=== PATIENT | male | born 1995 | race Caucasian/White ===

== ENCOUNTER 2019-04-15 16:01 | Emergency (ER) | payer OTHER ==
[~2019-04-15] VITALS: Ht 170.2 cm; Wt 77.3 kg
[2019-04-15 16:10] VITALS: BP 152/91
[2019-04-15] MEDS ORDERED: ONDANSETRON PF 4 MG/2 ML VIAL. IVP ONE (16:30)
[2019-04-15] MEDS ORDERED: IV NORMAL SALINE 1,000ML 1,000 ML IV ONE (16:30)
[2019-04-15] MEDS ORDERED: FAMOTIDINE 20 MG/2 ML VIAL IVP ONE (16:30)
[2019-04-15 17:06] LABS: BASO # 0.2 x10^3/uL (0.0-0.2); BASO % 1 % (0-3); EOS % 0 % (0-3); HEMATOCRIT 50.2 % (39.0-53.0); LYMPH # 1.2 x10^3/uL (1.0-4.8); LYMPH % 9 % (24-48); MEAN CORPUSCULAR HEMOGLOBIN 32 pg (25-35); MEAN CORPUSCULAR HGB CONC 34 g/dL (31-37); MEAN CORPUSCULAR VOLUME 95 fL (79-100); MONO # 0.7 x10^3/uL (0.0-1.1); MONO % 5 % (0-9); NEUT # 11.5 x10^3uL (1.8-7.7); NEUT % 84 % (31-73); PLATELET COUNT 244 x10^3/uL (140-400); RED CELL DISTRIBUTION WIDTH 13.1 % (11.5-14.5); WHITE BLOOD COUNT 13.7 x10^3/uL (4.0-11.0)
[2019-04-15 17:16] LABS: CALCIUM 9.6 mg/dL (8.5-10.1); GFR 93.4; POTASSIUM 3.9 mmol/L (3.5-5.1)
[2019-04-15 17:27] LABS: ALBUMIN/GLOBULIN RATIO 1.5 (1.0-1.7); MAGNESIUM 2.1 mg/dL (1.8-2.4); TOTAL BILIRUBIN 1.5 mg/dL (0.2-1.0); TOTAL PROTEIN 8.4 g/dL (6.4-8.2)
--- NOTE | 2019-04-15 17:37 | PHYS DOC ---
Past History Past Medical History: Alcoholism Past Surgical History: No Surgical History Smoking: Non-smoker Alcohol Use: Heavy Drug Use: None Social History History of heavy vaping for a few years stopping in 2016 Adult General Chief Complaint Chief Complaint: ABDOMINAL PAIN HPI SHAUN Walsh is a 23-year-old male presenting with abdominal pain. Patient states that around 1400 04/15/2019 he was tying his boot and suddenly felt a pain that is located in the left side of abdomen. Pt states that the pain lasted for 10 minutes then improved which was severe enough to limit his ability to move. Pt describes that the first time he noticed pain was 04/14/2019 while he was running. Pt reports that he has been at baseline as far as alcohol consumption- he on average drinks 7 cans a beer a day. Pt's most recent drink was 04/14/2019 around 1800 (a total of 8 drinks 04/14/2019). Pt states that he had a bowel movement earlier this morning (04/15/2019), denies blood in stool. Pt states that he also has chest discomfort on occasion, he noticed it is worse with breathing deeply. Review of Systems Review of Systems Constitutional: Denies fever or chills Eyes: Denies redness or eye pain HENT: Denies nasal congestion or sore throat Respiratory: Denies cough or shortness of breath Cardiovascular: Endorses chest discomfort with deep breathing GI: Endorses abdominal pain, denies nausea and vomiting. : Denies dysuria or hematuria Musculoskeletal: Denies back pain or joint pain Integument: Denies rash or skin lesions Neurologic: Denies headache, focal weakness or sensory changes Complete systems were reviewed and found to be within normal limits, except as documented in this note. Current Medications Current Medications Current Medications Medications (Trade) Dose Ordered Sig/Chelly Start Time Stop Time Status Last Admin Dose Admin Famotidine (Pepcid Vial) 20 mg 1X ONCE 04/15/19 16:30 04/15/19 16:31 DC Ondansetron HCl (Zofran) 4 mg 1X ONCE 04/15/19 16:30 04/15/19 16:31 DC Sodium Chloride 1,000 ml @ 1,000 mls/hr 1X ONCE 04/15/19 16:30 04/15/19 17:29 04/15/19 16:30 1,000 MLS/HR Allergies Allergies Allergies Coded Allergies Type Severity Reaction Last Updated Verified No Known Drug Allergies 04/15/19 No Physical Exam Physical Exam Constitutional: Well developed, well nourished, no acute distress, non-toxic appearance HENT: Normocephalic, atraumatic, oropharynx moist Eyes: Conjunctiva normal, no discharge Neck: Normal range of motion, no tenderness, supple Cardiovascular: Heart rate normal, regular rhythm Lungs & Thorax: Bilateral breath sounds clear to auscultation, no wheezing Abdomen: Soft, no tenderness, no distention/rebound tenderness/guarding Skin: Warm, dry, no erythema, no rash Back: No tenderness, no CVA tenderness Extremities: No tenderness, ROM intact, no edema Neurologic: Alert and oriented X 3, no focal deficits noted Psychologic: Affect normal, judgment normal Current Patient Data Vital Signs Vital Signs Date Time Temp Pulse Resp B/P (MAP) Pulse Ox O2 Delivery O2 Flow Rate FiO2 04/15/19 16:10 101 20 152/91 (111) 97 Lab Results Laboratory Tests Test 04/15/19 16:47 White Blood Count 13.7 x10^3/uL (4.0-11.0) H Red Blood Count 5.30 x10^6/uL (4.30-5.70) Hemoglobin 17.0 g/dL (13.0-17.5) Hematocrit 50.2 % (39.0-53.0) Mean Corpuscular Volume 95 fL (79-100) Mean Corpuscular Hemoglobin 32 pg (25-35) Mean Corpuscular Hemoglobin Concent 34 g/dL (31-37) Red Cell Distribution Width 13.1 % (11.5-14.5) Platelet Count 244 x10^3/uL (140-400) Neutrophils (%) (Auto) 84 % (31-73) H Lymphocytes (%) (Auto) 9 % (24-48) L Monocytes (%) (Auto) 5 % (0-9) Eosinophils (%) (Auto) 0 % (0-3) Basophils (%) (Auto) 1 % (0-3) Neutrophils # (Auto) 11.5 x10^3uL (1.8-7.7) H Lymphocytes # (Auto) 1.2 x10^3/uL (1.0-4.8) Monocytes # (Auto) 0.7 x10^3/uL (0.0-1.1) Eosinophils # (Auto) 0.0 x10^3/uL (0.0-0.7) Basophils # (Auto) 0.2 x10^3/uL (0.0-0.2) Ethyl Alcohol Level < 10 mg/dL (0-10) EKG EKG [] Radiology/Procedures Radiology/Procedures [] Course & Med Decision Making Course & Med Decision Making Pertinent Lab studies reviewed. (See chart for details) Patient with past medical history of chronic alcohol abuse presents with report of abdominal pain after patient went to tie his shoes. No history of focal trauma. Abdomen non-peritoneal. Afebrile. Labs obtained and posted to chart. UA unobtainable as patient unable to provide. Denies any dysuria or hematuria. UA therefore canceled. Patient offered symptomatic treatment which he refused. IV fluid hydration was provided. Patient was concern for possible withdrawal symptoms and end organ damage secondary to alcohol consumption. Patient advised while labs not overly significant that continued use of alcohol would provide damage. Advised would be beneficial for him to check into a drug and alcohol rehabilitation center. Patient reports he currently is unable to do so as he is in the . Patient stable for discharge with outpatient follow-up with PCP. Discussed findings and plan with patient, who acknowledges understanding and agreement. Dragon Disclaimer Dragon Disclaimer This electronic medical record was generated, in whole or in part, using a voice recognition dictation system. Departure Departure: Impression: Primary Impression: Abdominal pain Disposition: HOME, SELF-CARE Condition: STABLE Referrals: PCP,NO (PCP) PAO RENE MD Patient Instructions: Abdominal Pain (Nonspecific) Scripts Ondansetron (ONDANSETRON ODT) 4 Mg Tab.rapdis 1 TAB PO PRN Q6-8HRS PRN for NAUSEA, #16 TAB Prov: MAYRA LEMOS DO 04/15/19 Famotidine (PEPCID) 20 Mg Tablet 1 TAB PO BID for Gastritis, #14 TAB Prov: MAYRA LEMOS DO 04/15/19 Hyoscyamine Sulfate (LEVSIN-SL) 0.125 Mg Tab.subl 0.125 MG SL Q4-6HRS PRN for PAIN, #14 TAB Prov: MAYRA LEMOS DO 04/15/19 Problem Qualifiers Primary Impression: Abdominal pain Abdominal location: unspecified location Qualified Codes: R10.9 - Unspecified abdominal pain MAYRA LEMOS DO Apr 15, 2019 17:37
[2019-04-15] MEDS ORDERED: FAMO-63 PO (17:52)
[2019-04-15] MEDS ORDERED: ONDA4TAB12 PO (17:52)
[2019-04-15] MEDS ORDERED: HYOS0.1265 SL (17:52)
== END 2019-04-15 18:32 | disposition home or self-care (01) ==
LOC: ER 16:01
DX: R10.9 Unspecified abdominal pain (principal); R07.89 Other chest pain; F10.20 Alcohol dependence, uncomplicated; Y90.0 Blood alcohol level of less than 20 mg/100 ml
CPT/HCPCS: 36415; 80053; 83690; 83735; 85025; 99283; G0480; J7030